=== PATIENT | female | born 1985 | race Caucasian/White ===

== ENCOUNTER 2018-12-10 14:41 | Inpatient (IN) | payer OTHER, MEDICAID ==
[2018-12-10 16:34] LABS: ADD MAN DIFF? NO
[2018-12-10 16:38] LABS: BASOPHILS % 0.5 % (0.0-2.0); EOSINOPHILS % 0.6 % (0.0-7.0); HEMATOCRIT 33.6 % (37.0-47.0); HEMOGLOBIN 10.6 g/dl (12.0-16.0); LYMPHOCYTES # 1.5 10^3/ul (0.8-2.9); MEAN CORPUSCULAR HEMOGLOBIN 27.2 pg (29.0-33.0); MEAN CORPUSCULAR HGB CONC 31.5 g/dl (32.0-37.0); MEAN CORPUSCULAR VOLUME 86.4 fl (82.0-101.0); MEAN PLATELET VOLUME 9.8 fl (7.4-10.4); MONOCYTE # 0.4 10^3/ul (0.3-0.9); MONOCYTES % 7.1 % (0.0-11.0); NEUTROPHIL # 4.2 10^3/ul (1.6-7.5); NEUTROPHILS % 67.2 % (39.0-77.0); PLATELET COUNT 234 10^3/UL (140-415); RED BLOOD COUNT 3.89 10^6/ul (4.20-5.40); RED CELL DISTRIBUTION WIDTH 16.4 % (11.5-14.5)
[2018-12-10 16:38] LABS: WHITE BLOOD COUNT 6.2 10^3/ul (4.8-10.8)
[2018-12-10 16:55] LABS: ADD UMIC YES; UR ASCORBIC ACID NEGATIVE (NEGATIVE); UR BACTERIA FEW /HPF (NONE SEEN); UR BILIRUBIN (Dip) NEGATIVE (NEGATIVE); UR BLOOD (Dip) NEGATIVE (NEGATIVE); UR CLARITY SLIGHTLY CLOUDY (CLEAR); UR COLOR YELLOW (YELLOW); UR GLUCOSE (Dip) NEGATIVE (NEGATIVE); UR KETONES (Dip) NEGATIVE (NEGATIVE); UR LEUKOCYTE ESTERASE (Dip) 3+ Leu/ul (NEGATIVE); UR MUCUS FEW /HPF (NONE SEEN); UR NITRITE (Dip) NEGATIVE (NEGATIVE); UR RBC 1 /HPF (0-5); UR SPECIFIC GRAVITY (Dip) 1.012 (1.003-1.030); UR SQUAMOUS EPITHELIAL CELL MANY /HPF (FEW); UR TOTAL PROTEIN (Dip) NEGATIVE (NEGATIVE); UR UROBILINOGEN (Dip) NEGATIVE (NEGATIVE); UR WBC 42 /HPF (0-5)
[2018-12-10] MEDS ORDERED: OXYTOCIN 30 UNITS/LR 500 ML IV ×3 (17:30→20:30)
[2018-12-10] MEDS ORDERED: BUTORPHANOL 2 MG INJ IV (17:30)
[2018-12-10] MEDS ORDERED: LIDOCAINE 1% (MPF) 30 ML INJ INJ (17:30)
[2018-12-10] MEDS ORDERED: MISOPROSTOL 200 MCG TAB PR (17:30)
[2018-12-10] MEDS ORDERED: BUTORPHANOL 1 MG INJ IV (17:30)
[2018-12-10] MEDS ORDERED: CARBOPROST 250 MCG INJ IM (17:30)
[2018-12-10 17:38] LABS: INR 0.87; PROTIME 11.9 Sec (11.9-14.9); PT RATIO 0.9
[2018-12-10 17:39] LABS: PARTIAL THROMBOPLASTIN TIME 28.7 Sec (23.0-35.0)
[2018-12-10 17:41] LABS: HEPATITIS B SURFACE ANTIGEN NEGATIVE (NEGATIVE)
[2018-12-10 17:50] LABS: HIV 1&2 ANTIBODY NEGATIVE (NEGATIVE)
[2018-12-10] MEDS: LACTATED RINGER'S 1,000 ML IV ×3 (17:58→22:25)
[2018-12-10] MEDS: AMPICILLIN 2 GM/NS (PMX) 100 ML IV (20:19)
[2018-12-10 20:40] LABS: AMPHETAMINE/METHAMPHETAMINE Negative (NEGATIVE); BARBITURATES Negative (NEGATIVE); BENZODIAZEPINES Negative (NEGATIVE); CANNABINOIDS Negative (NEGATIVE); COCAINE Negative (NEGATIVE); OPIATES Negative (NEGATIVE)
[2018-12-10] MEDS ORDERED: FENTAnyl 2MCG/ML-ROPIV 0.2% 100 ML (22:32)
[2018-12-10] MEDS ORDERED: NALOXONE (0.4 MG/ML) INJ IV (23:00)
[2018-12-10] MEDS ORDERED: DIPHENHYDRAMINE 50 MG INJ IV (23:00)
[2018-12-10] MEDS ORDERED: ONDANSETRON 4 MG INJ IV (23:00)
[2018-12-10] MEDS: OXYTOCIN 30 UNITS/LR 500 ML IV (23:15)
[2018-12-11] MEDS: AMPICILLIN 1 GM/NS (PMX) 50 ML IV ×2 (00:27→04:24)
[2018-12-11] MEDS: LACTATED RINGER'S 1,000 ML IV ×2 (00:38→04:25)
[2018-12-11] MEDS: FENTAnyl 2MCG/ML-ROPIV 0.2% 100 ML BAG EPI (06:06)
[2018-12-11] MEDS: METHYLERGONOVINE 0.2 MG INJ IM (06:12)
[2018-12-11] MEDS: LACTATED RINGER'S 1,000 ML IV* ×3 (06:26→22:26)
[2018-12-11] MEDS: OXYTOCIN 30 UNITS/LR 500 ML IV ×2 (06:26)
[2018-12-11] MEDS ORDERED: MAGNESIUM HYDROXIDE 30ML CUP PO (06:30)
[2018-12-11] MEDS ORDERED: ONDANSETRON 4 MG INJ IV (06:30)
[2018-12-11] MEDS ORDERED: METHYLERGONOVINE 0.2 MG INJ IM (06:30)
[2018-12-11] MEDS ORDERED: DIBUCAINE 1% 30 GM OINT TOP (06:30)
[2018-12-11] MEDS ORDERED: ACETAMINOPHEN 325 MG TAB PO ×2 (06:30)
[2018-12-11] MEDS ORDERED: OXYTOCIN 30 UNITS/LR 500 ML IV (06:30)
[2018-12-11] MEDS ORDERED: MISOPROSTOL 200 MCG TAB PR (06:30)
[2018-12-11] MEDS ORDERED: CARBOPROST 250 MCG INJ IM (06:30)
[2018-12-11] MEDS: IBUPROFEN 600 MG TAB PO ×3 (06:54→17:23)
[2018-12-11] MEDS: OXYCODONE/ACETAMINOPHEN (5/325) TAB PO ×2 (08:26→20:15)
[2018-12-11] MEDS: LANOLIN HPA 1 PKT TOP (09:29)
[2018-12-11] MEDS: WITCH HAZEL/GLYCERIN PAD PR (09:29)
[2018-12-11] MEDS: SENNA/DOCUSATE NA (8.6MG/50MG) TAB PO (09:30)
[2018-12-11] MEDS: BENZOCAINE 20% 56 ML SPRAY TOP (12:11)
[2018-12-11 15:04] LABS: RAPID PLASMA REAGIN NONREACTIVE (NR)
[2018-12-12] MEDS: IBUPROFEN 600 MG TAB PO ×5 (00:16→23:17)
[2018-12-12] MEDS: LACTATED RINGER'S 1,000 ML IV* ×3 (06:12→22:26)
[2018-12-12 06:46] LABS: ADD MAN DIFF? NO
[2018-12-12 06:56] LABS: BASOPHILS % 0.3 % (0.0-2.0); EOSINOPHILS # 0.1 10^3/ul (0.0-0.5); EOSINOPHILS % 1.4 % (0.0-7.0); HEMATOCRIT 27.5 % (37.0-47.0); HEMOGLOBIN 8.7 g/dl (12.0-16.0); LYMPHOCYTES % 22.3 % (15.0-51.0); MEAN CORPUSCULAR HEMOGLOBIN 28.3 pg (29.0-33.0); MEAN CORPUSCULAR HGB CONC 31.6 g/dl (32.0-37.0); MEAN CORPUSCULAR VOLUME 89.6 fl (82.0-101.0); MEAN PLATELET VOLUME 9.9 fl (7.4-10.4); MONOCYTE # 0.7 10^3/ul (0.3-0.9); MONOCYTES % 7.8 % (0.0-11.0); NEUTROPHIL # 6.1 10^3/ul (1.6-7.5); NEUTROPHILS % 67.4 % (39.0-77.0); PLATELET COUNT 185 10^3/UL (140-415); RED BLOOD COUNT 3.07 10^6/ul (4.20-5.40); RED CELL DISTRIBUTION WIDTH 16.1 % (11.5-14.5)
[2018-12-12] MEDS: SENNA/DOCUSATE NA (8.6MG/50MG) TAB PO (08:32)
[2018-12-12] MEDS: LACTATED RINGER'S 1,000 ML IV ×2 (09:17→17:17)
[2018-12-13] MEDS: LACTATED RINGER'S 1,000 ML IV (01:17)
[2018-12-13] MEDS: LACTATED RINGER'S 1,000 ML IV* (06:26)
[2018-12-13 11:52] LABS: RUBELLA ANTIBODY - IGM <20.00 AU/mL
[2018-12-13] MEDS: IBUPROFEN 600 MG TAB PO (12:08)
[2018-12-13 12:37] LABS: RUBELLA ANTIBODY - IGG <0.90 index
== END 2018-12-13 15:48 | disposition home or self-care (01) | DRG 807 ==
LOC: OBT 14:41 → PP1 12-11 08:54 → L-D 14:41 → PP1 12-11 11:07 → OBT 17:20 → L-D 17:20
PROC: 10E0XZZ Delivery of Products of Conception, External Approach (ICD-10-PCS; principal; 2018-12-11)
DX: O80 Encounter for full-term uncomplicated delivery (principal); Z37.0 Single live birth; Z3A.39 39 weeks gestation of pregnancy; Z23 Encounter for immunization
CPT/HCPCS: 62319; 76815; 76818; 80307; 81001; 85025; 85610; 85730; 86592; 86703; 86762; 86885; 86900; 86901; 87340; 90686